=== PATIENT | male | born 1995 | race Two or more races ===

== ENCOUNTER 2021-02-07 10:36 | Emergency (ER) | payer OTHER ==
[~2021-02-07] VITALS: Ht 180.3 cm; Wt 105.1 kg
[2021-02-07 12:30] LABS: BASO # 0.1 10^3/uL (0.0-0.2); BASO % 0.8 % (0.0-1.0); EOS # 0.1 10^3/uL (0.0-0.5); EOS % 1.3 % (0.0-3.0); HEMATOCRIT 41.3 % (42.0-52.0); HEMOGLOBIN 14.9 g/dl (13.5-17.5); LYMPH # 1.9 10^3/uL (1.5-5.0); LYMPH % 19.3 % (24.0-44.0); MEAN CORPUSCULAR HEMOGLOBIN 31.2 pg (27.0-33.0); MEAN CORPUSCULAR HGB CONC 36.1 g/dl (32.0-36.5); MEAN CORPUSCULAR VOLUME 86.4 fl (80.0-96.0); MONO # 0.9 10^3/uL (0.0-0.8); MONO % 8.7 % (2.0-8.0); NEUTROPHILS # 6.8 10^3/uL (1.5-8.5); NEUTROPHILS % 69.6 % (36.0-66.0); PLATELET COUNT, AUTOMATED 291 10^3/uL (150-450); RED BLOOD COUNT 4.78 10^6/uL (4.30-6.10); WHITE BLOOD COUNT 9.7 10^3/uL (4.0-10.0)
--- NOTE | 2021-02-07 12:33 | REP ---
INDICATION: chest pain. COMPARISON: No comparison chest x-ray. TECHNIQUE: Two views.. FINDINGS: The lungs are well inflated and free of infiltrate. The pleural angles are sharp. The heart size is normal. Pulmonary vasculature is not increased. No significant bony abnormality is seen. IMPRESSION: Negative chest x-ray. <Electronically signed by Kaushik Trevino > 02/07/21 2133
[2021-02-07 13:03] LABS: ALBUMIN 4.3 GM/DL (3.2-5.2); ALT/SGPT 37 U/L (12-78); BILIRUBIN,TOTAL 1.6 MG/DL (0.2-1.0); BLOOD UREA NITROGEN 12 MG/DL (7-18); CALCIUM LEVEL 9.1 MG/DL (8.5-10.1); CARBON DIOXIDE LEVEL 28 MEQ/L (21-32); CHLORIDE LEVEL 106 MEQ/L (98-107); CK-MB VALUE MASS 1.2 NG/ML (<3.6); CPK CREATINE PHOSPHOKINASE 490 U/L (39-308); CREATININE FOR GFR 1.12 MG/DL (0.70-1.30); GLOMERULAR FILTRATION RATE > 60.0 (>60); GLUCOSE, FASTING 88 MG/DL (70-100); MB/CK RELATIVE INDEX 0.24 (< OR =4); POTASSIUM SERUM 4.2 MEQ/L (3.5-5.1); SODIUM LEVEL 139 MEQ/L (136-145); TOTAL PROTEIN 7.8 GM/DL (6.4-8.2); TROPONIN I < 0.02 NG/ML (< 0.10)
[2021-02-07 13:07] LABS: RSV AMPLIFICATION NEGATIVE (NEGATIVE)
[2021-02-07 13:09] LABS: ERYTHROCYTE SEDIMENTATION RATE 4 mm/hr (0-15)
[2021-02-07 15:46] LABS: CK-MB VALUE MASS 1.3 NG/ML (<3.6); CPK CREATINE PHOSPHOKINASE 497 U/L (39-308); MB/CK RELATIVE INDEX 0.26 (< OR =4); TROPONIN I < 0.02 NG/ML (< 0.10)
[2021-02-07 15:56] VITALS: BP 144/97
--- NOTE | 2021-02-08 09:28 | ECGEPIP ---
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
== END 2021-02-07 15:57 | disposition home or self-care (01) ==
LOC: M ED 10:36
DX: F43.0 Acute stress reaction (principal); I45.19 Other right bundle-branch block; R94.31 Abnormal electrocardiogram [ECG] [EKG]; Z88.0 Allergy status to penicillin; Z88.1 Allergy status to other antibiotic agents; Z82.49 Family history of ischemic heart disease and other diseases of the circulatory system

== ENCOUNTER → 2021-04-21 | Outpatient (CLI) | payer OTHER ==
--- NOTE | 2021-04-21 11:40 | PFTRPT ---
Site: [facility], [address] [place] [address], [id number] ID: [id number] Name: YUKI ANN Visit Date: 04/21/2021 Second ID: [id number] Referring Doctor: GARRET HUITRON Reviewing Doctor: Mann Bae MD Astronomy Department Chair: Glenroy SEVERINO RRT Age: 25 : 1995 Sex: Male Race: Height: 71.00 Inches Weight: 218.00 Lbs BSA: 2.19 Order IDs: [id number] Requested Test(s): <RESP-PFT.PFT B/A> Diagnosis: SOB test meet the ATS standards for acceptability and repeatability. Pt was given four puffs of albuterol for post bronchodilator. Review Status: Not Reviewed Pre-Bronch Post-Bronch Pred Actual %Pred Actual %Chng SPIROMETRY FVC (L) 5.69 5.49 96 5.74 4 FEV1 (L) 4.67 3.97 84 4.30 8 FEV1/FVC (%) 83 72 87 75 3 FEF 25% (L/sec) 8.86 7.01 79 8.23 17 FEF 50% (L/sec) 5.98 3.50 58 4.32 23 FEF 75% (L/sec) 2.31 1.27 54 1.83 43 FEF 25-75% (L/sec) 4.73 2.96 62 3.81 28 FEF Max (L/sec) 10.45 8.21 78 8.74 6 FIVC (L) 5.32 4.76 -10 FIF 50% (L/sec) 5.58 7.43 133 3.06 -58 FIF Max (L/sec) 7.43 4.80 -35 MVV (L/min) 185 109 58 Expiratory Time (sec) 6.56 6.62 Back Extrap Vol (L) 0.22 0.25 14 Time To FEFmax (sec) 0.116 0.135 16 LUNG VOLUMES SVC (L) 5.48 5.28 96 IC (L) 3.63 4.07 112 ERV (L) 1.85 1.22 65 TGV (L) 3.46 3.47 100 RV (Pleth) (L) 1.61 2.25 139 TLC (Pleth) (L) 7.09 7.54 106 RV/TLC (Pleth) (%) 22 30 135 DIFFUSION DLCOunc (ml/min/mmHg) 36.45 37.35 102 DL/VA (ml/min/mmHg/L) 5.14 5.28 102 VA (L) 7.09 7.08 99 BHT (sec) 10.69 IVC (L) 5.48 TLC (SB) (L) 7.23 AIRWAYS RESISTANCE Raw (cmH2O/L/s) 1.45 0.52 35 Gaw (L/s/cmH2O) 1.03 2.08 202 sRaw (cmH2O*s) 4.76 1.87 39 sGaw (1/cmH2O*s) 0.20 0.56 281
== END ==
LOC: M CARPUL 10:54
PROVIDERS: ATTEND Physician Assistant
DX: R07.9 Chest pain, unspecified (principal)